=== PATIENT | female | born 1980 | race Two or more races ===

== ENCOUNTER 2017-02-15 21:20 | Emergency (ER) | payer SELFPAY ==
[~2017-02-15] VITALS: Ht 152.4 cm; Wt 59.0 kg
[2017-02-15] MEDS ORDERED: SUMA50TA3 PO (22:01)
--- NOTE | 2017-02-15 22:01 | PHYS DOC ---
Past Medical History Past Medical History: No Pertinent History Past Surgical History: No Surgical History Alcohol Use: Rarely Drug Use: None Adult General Chief Complaint Chief Complaint: FLU SYMPTOM HPI HPI Patient is a 36 year old female with no significant medical history who presents complaining of a left-sided headache especially behind the left eye that began 4 days ago. Patient states the headache comes and goes. Patient states she's had similar headaches before. Patient denies any photophobia nausea vomiting with the headache. She states she feels her face is warm. She states she has an appointment with her doctor tomorrow. Review of Systems Review of Systems Constitutional: Denies fever or chills [] Eyes: Denies change in visual acuity, redness, or eye pain [] HENT: Denies nasal congestion or sore throat [] Respiratory: Denies cough or shortness of breath [] Cardiovascular: No additional information not addressed in HPI [] GI: Denies abdominal pain, nausea, vomiting, bloody stools or diarrhea [] : Denies dysuria or hematuria [] Musculoskeletal: Denies back pain or joint pain [] Integument: Denies rash or skin lesions [] Neurologic: headache, Endocrine: Denies polyuria or polydipsia [] Current Medications Current Medications Current Medications Medications (Trade) Dose Ordered Sig/Marcelo Start Time Stop Time Status Last Admin Dose Admin Diphenhydramine HCl (Benadryl) 25 mg 1X ONCE 02/15/17 22:00 02/15/17 22:01 UNV Ketorolac Tromethamine (Toradol Im) 60 mg 1X ONCE 02/15/17 22:00 02/15/17 22:01 UNV Prochlorperazine Edisylate (Compazine) 10 mg 1X ONCE 02/15/17 22:00 02/15/17 22:01 UNV Allergies Allergies Allergies Coded Allergies Type Severity Reaction Last Updated Verified No Known Drug Allergies 02/15/17 No Physical Exam Physical Exam Constitutional: Well developed, well nourished, no acute distress, non-toxic appearance. [] HENT: Normocephalic, atraumatic, bilateral external ears normal, oropharynx moist, no oral exudates, nose normal. [] Eyes: PERRLA, EOMI, conjunctiva normal, no discharge. [] Neck: Normal range of motion, no tenderness, supple, no stridor. [] Cardiovascular:Heart rate regular rhythm, no murmur [] Lungs & Thorax: Bilateral breath sounds clear to auscultation [] Abdomen: Bowel sounds normal, soft, no tenderness, no masses, no pulsatile masses. [] Skin: Warm, dry, no erythema, no rash. [] Back: No tenderness, no CVA tenderness. [] Extremities: No tenderness, no cyanosis, no clubbing, ROM intact, no edema. [] Neurologic: Alert and oriented X 3, normal motor function, normal sensory function, no focal deficits noted. Cranial nose II through XII intact Psychologic: Affect normal, judgement normal, mood normal. [] Current Patient Data Vital Signs Vital Signs Date Time Temp Pulse Resp B/P Pulse Ox O2 Delivery O2 Flow Rate FiO2 02/15/17 21:41 98.4 104 18 119/77 98 Room Air 98.4 EKG EKG [] Radiology/Procedures Radiology/Procedures [] Course & Med Decision Making Course & Med Decision Making Pertinent Labs and Imaging studies reviewed. (See chart for details) Patient is in the ED complaining of a headache that is suspicious of a migraine. She was given Toradol Benadryl and Compazine. She was discharged with Imitrex. She has an appointment with her doctor tomorrow. Provided return precautions and discharged in stable condition. Dragon Disclaimer Dragon Disclaimer This electronic medical record was generated, in whole or in part, using a voice recognition dictation system. Departure Departure Impression: Primary Impression: Headache Disposition: HOME, SELF-CARE Condition: STABLE Referrals: NON,STAFF (PCP) Follow-up with your doctor tomorrow Patient Instructions: General Headache Without Cause, [id number] Additional Instructions: You were seen for a headache. Please follow-up with your doctor tomorrow as scheduled. Scripts Sumatriptan Succinate (Imitrex)50 Mg Tablet1 Tab PO UD #9 TAB Ref 1 Prov:LENNY SANCHEZ ERNESTO 02/15/17 Problem Qualifiers Primary Impression: Headache Headache type: unspecified Headache chronicity pattern: unspecified pattern Intractability: not intractable Qualified Code: R51 - Headache LENNY SANCHEZ ERNESTO February 15, 2017 22:01
[2017-02-15] MEDS ORDERED: PROCHLORPERAZINE 10 MG/2 ML VIAL. IM ONE (22:15)
[2017-02-15] MEDS ORDERED: diphenhydrAMINE 50 MG/ML VIAL IM ONE (22:15)
[2017-02-15] MEDS ORDERED: KETOROLAC TROMETHAMINE 60 MG/2 ML INJ. IM ONE (22:15)
[2017-02-15 22:34] VITALS: BP 98/65
== END 2017-02-15 22:35 | disposition home or self-care (01) ==
LOC: ER 21:20
DX: R51 Headache (principal)
CPT/HCPCS: 96372; 99284; J0780; J1200; J1885

== ENCOUNTER 2021-06-18 20:09 | Inpatient (IN) | payer MEDICAID ==
[~2021-06-18] VITALS: Ht 152.4 cm; Wt 62.6 kg
[~2021-06-18 20:09] MED LIST: DOCU-109 PO; FERR325T14 PO; IBUP-1060 PO; SUMA50TA3 PO
--- NOTE | 2021-06-18 20:41 | PHYS DOC ---
Past Medical History Past Medical History: No Pertinent History Past Surgical History: No Surgical History Smoking Status: Never Smoker Alcohol Use: Rarely Drug Use: None General Adult EDM: Chief Complaint: ABDOMINAL PAIN HPI: HPI: Patient is a 40 year old female who present to ER for evaluation of right upper quadrant abdominal pain epigastric pain since 3 PM today while she was at work. Patient had this problem off and on for about 4 months. Patient says she was seen at [facility] last month for the same problem, diagnosed with gallbladder problem. Patient has not seen a general surgeon yet. Patient denies any cough or fever. Patient denies any chest pain or any trouble breathing, she says she is not . Review of Systems: Review of Systems: Constitutional: Denies fever or chills. [] Eyes: Denies change in visual acuity. [] HENT: Denies nasal congestion or sore throat. [] Respiratory: Denies cough or shortness of breath. [] Cardiovascular: Denies chest pain or edema. [] GI: Positive for abdominal pain with nausea, no vomiting, no diarrhea. : Denies dysuria. [] Musculoskeletal: Denies back pain or joint pain. [] Integument: Denies rash. [] Neurologic: Denies headache, focal weakness or sensory changes. [] Endocrine: Denies polyuria or polydipsia. [] Lymphatic: Denies swollen glands. [] Psychiatric: Denies depression or anxiety. [] Heart Score: C/O Chest Pain: N/A Risk Factors: Risk Factors: DM, Current or recent (<one month) smoker, HTN, HLP, family history of CAD, obesity. Risk Scores: Score 0 - 3: 2.5% MACE over next 6 weeks - Discharge Home Score 4 - 6: 20.3% MACE over next 6 weeks - Admit for Clinical Observation Score 7 - 10: 72.7% MACE over next 6 weeks - Early Invasive Strategies Allergies: Allergies: Allergies Coded Allergies Type Severity Reaction Last Updated Verified progesterone Adverse Reaction Intermediate Itching 10/01/20 Yes Physical Exam: PE: Constitutional: Well developed, well nourished, no acute distress, non-toxic appearance. [] HENT: Normocephalic, atraumatic, bilateral external ears normal, oropharynx moist, no oral exudates, nose normal. [] Eyes: PERRLA, EOMI, conjunctiva normal, no discharge. [] Neck: Normal range of motion, no tenderness, supple, no stridor. [] Cardiovascular:Heart rate regular rhythm, no murmur [] Lungs & Thorax: Bilateral breath sounds clear to auscultation [] Abdomen: Bowel sounds normal, soft, there is tenderness to palpation in the epigastric and right upper quadrant. No masses, no pulsatile masses. [] Skin: Warm, dry, no erythema, no rash. [] Back: No tenderness, no CVA tenderness. [] Extremities: No tenderness, no cyanosis, no clubbing, ROM intact, no edema. [] Neurologic: Alert and oriented X 3, normal motor function, normal sensory function, no focal deficits noted. [] Psychologic: Affect normal, judgement normal, mood normal. [] Current Patient Data: Labs: Laboratory Tests Test 06/18/21 20:20 06/18/21 20:22 06/18/21 20:55 Urine Collection Type Void Urine Color Yellow Urine Clarity Clear Urine pH 6.0 Urine Specific [place] 1.020 Urine Protein Negative mg/dL Urine Glucose (UA) Negative mg/dL Urine Ketones (Stick) Negative mg/dL Urine Blood Trace Urine Nitrite Negative Urine Bilirubin Negative Urine Urobilinogen Dipstick 1.0 mg/dL Urine Leukocyte Esterase Moderate Urine RBC 0 /HPF Urine WBC >40 /HPF Urine Squamous Epithelial Cells Mod /LPF Urine Bacteria Moderate /HPF Urine Mucus Marked /LPF Bedside Urine HCG, Qualitative Hcg negative White Blood Count 10.1 x10^3/uL Red Blood Count 4.64 x10^6/uL Hemoglobin 13.8 g/dL Hematocrit 39.1 % Mean Corpuscular Volume 84 fL Mean Corpuscular Hemoglobin 30 pg Mean Corpuscular Hemoglobin Concent 35 g/dL Red Cell Distribution Width 13.4 % Platelet Count 388 x10^3/uL Neutrophils (%) (Auto) 71 % Lymphocytes (%) (Auto) 23 % Monocytes (%) (Auto) 4 % Eosinophils (%) (Auto) 1 % Basophils (%) (Auto) 0 % Neutrophils # (Auto) 7.2 x10^3/uL Lymphocytes # (Auto) 2.4 x10^3/uL Monocytes # (Auto) 0.4 x10^3/uL Eosinophils # (Auto) 0.1 x10^3/uL Basophils # (Auto) 0.0 x10^3/uL Sodium Level 138 mmol/L Potassium Level 3.3 mmol/L Chloride Level 101 mmol/L Carbon Dioxide Level 28 mmol/L Anion Gap 9 Blood Urea Nitrogen 9 mg/dL Creatinine 0.8 mg/dL Estimated GFR (Cockcroft-Gault) 80.3 BUN/Creatinine Ratio 11 Glucose Level 124 mg/dL Calcium Level 9.2 mg/dL Magnesium Level 1.9 mg/dL Total Bilirubin 1.0 mg/dL Aspartate Amino Transf (AST/SGOT) 158 U/L Alanine Aminotransferase (ALT/SGPT) 100 U/L Alkaline Phosphatase 165 U/L Total Protein 7.9 g/dL Albumin 3.9 g/dL Albumin/Globulin Ratio 1.0 Lipase 141 U/L Current Medications Medications (Trade) Dose Ordered Sig/Marcelo Route PRN Reason Start Time Stop Time Status Last Admin Dose Admin Sodium Chloride 1,000 ml @ 1,000 mls/hr 1X ONCE IV 06/18/21 20:45 06/18/21 21:44 DC 06/18/21 20:56 Ceftriaxone Sodium (Rocephin) 1 gm 1X ONCE IVP 06/18/21 21:30 06/18/21 21:31 DC 06/18/21 22:00 Morphine Sulfate (Morphine Sulfate) 4 mg 1X ONCE IVP 06/18/21 21:45 06/18/21 21:47 DC 06/18/21 21:58 Ondansetron HCl (Zofran) 4 mg PRN Q8HRS PRN IVP NAUSEA/VOMITING 06/18/21 23:45 06/19/21 23:44 Morphine Sulfate (Morphine Sulfate) 4 mg PRN Q2HR PRN IVP PAIN 06/18/21 23:45 06/19/21 23:44 Sodium Chloride 1,000 ml @ 75 mls/hr [id number] IV 06/18/21 23:45 06/19/21 23:44 Laboratory Tests Test 06/18/21 20:22 POC Urine HCG, Qualitative Hcg negative (Negative) EKG: EKG: [] Radiology/Procedures: Radiology/Procedures: [][facility] [id number] [place], [place] [id number] IMAGING REPORT Signed PATIENT: FLAVIA PAT ACCOUNT: [id number] : 1980 LOCATION: ER AGE: 40 SEX: F EXAM STATUS: REG ER ORD. PHYSICIAN: NELDA PULIDO DO REASON: RUQ abdominal pain/ attempted patient said she felt dizzy and couldn't miladys PROCEDURE: ABDOMEN LTD EXAMINATION: US ABDOMEN LIMITED INDICATION: 40 years, Female, right upper quadrant abdominal pain. COMPARISON: None TECHNIQUE: Grayscale, color Doppler and limited spectral Doppler images of the right upper quadrant were obtained. FINDINGS: LIVER: SIZE (LENGTH): 14.6 cm. ECHOGENICITY: Increased PARENCHYMA: Mild heterogeneous echotexture. No discrete focal lesion. INTRAHEPATIC BILE DUCTS: Nondilated. PORTAL VEIN: Patent with normal hepatopedal flow. GALLBLADDER: GALLBLADDER WALL THICKNESS: 2 mm MORPHOLOGY: Normal morphology. No wall hyperemia or pericholecystic free fluid. LUMEN: Multiple cholelithiasis.. COMMON BILE DUCT DIAMETER: 3 mm RIGHT KIDNEY: MEASURES: 10.2 cm in length. MORPHOLOGY/PARENCHYMA: Normal corticomedullary differentiation with no shadowing calculus or discrete masses. COLLECTING SYSTEM: No hydronephrosis. PANCREAS: VISUALIZED PORTIONS: Head and proximal body APPEARANCE: Within normal limits. OTHER: RETROPERITONEUM, INFERIOR VENA CAVA: Normal caliber. AORTA: Not well visualized. FLUID:No free fluid. IMPRESSION: 1. Multiple cholelithiasis without sonographic evidence of acute cholecystitis. 2. Mild to moderate diffuse hepatic steatosis. Electronically signed by: Steve Steven MD (06/18/2021 10:53 PM) [facility] DICTATED and SIGNED BY: STEVE STEVEN MD DATE: 06/18/21 [id number] 0 Course & Med Decision Making: Course & Med Decision Making Pertinent Labs and Imaging studies reviewed. (See chart for details) Patient is a 32-year-old female who present to ER due to right upper quadrant abdominal pain. Ultrasound showed multiple gallstones with fatty infiltration of the liver. Her liver function tests are elevated. Patient will need to be admitted for further evaluation and treatment. Dragon Disclaimer: Dragon Disclaimer: This electronic medical record was generated, in whole or in part, using a voice recognition dictation system. Departure Departure Impression: Primary Impression: Biliary colic symptom Additional Impressions: UTI (urinary tract infection) Elevated LFTs Disposition: ADMITTED INPATIENT Admitting Physician: MARILIN (DR. ZELAYA) Condition: STABLE Referrals: NO PCP (PCP) NELDA PULIDO DO Jun 18, 2021 20:41
[2021-06-18] MEDS ORDERED: IV NORMAL SALINE 1000ML BAG 1,000 ML IV ONE (20:45)
[2021-06-18 20:48] LABS: BILIRUBIN,URINE NEGATIVE (NEG); CLARITY,URINE CLEAR; COLOR,URINE YELLOW; NITRITE,URINE NEGATIVE (NEG); PROTEIN,URINE NEGATIVE (NEG-TRACE)
[2021-06-18 20:59] LABS: BACTERIA,URINE MODERATE /HPF (0-FEW)
[2021-06-18 21:00] LABS: RBC,URINE 0 /HPF (0-2); WBC,URINE >40 /HPF (0-4)
[2021-06-18 21:04] LABS: BASO % 0 % (0-3); EOS # 0.1 x10^3/uL (0.0-0.7); EOS % 1 % (0-3); HEMATOCRIT 39.1 % (36.0-47.0); HEMOGLOBIN 13.8 g/dL (12.0-15.5); LYMPH # 2.4 x10^3/uL (1.0-4.8); LYMPH % 23 % (24-48); MEAN CORPUSCULAR HEMOGLOBIN 30 pg (25-35); MEAN CORPUSCULAR HGB CONC 35 g/dL (31-37); MEAN CORPUSCULAR VOLUME 84 fL (79-100); MONO # 0.4 x10^3/uL (0.0-1.1); MONO % 4 % (0-9); NEUT # 7.2 x10^3/uL (1.8-7.7); NEUT % 71 % (31-73); PLATELET COUNT 388 x10^3/uL (140-400); RED BLOOD COUNT 4.64 x10^6/uL (3.50-5.40); RED CELL DISTRIBUTION WIDTH 13.4 % (11.5-14.5); WHITE BLOOD COUNT 10.1 x10^3/uL (4.0-11.0)
[2021-06-18 21:14] LABS: CALCIUM 9.2 mg/dL (8.5-10.1); CREATININE 0.8 mg/dL (0.6-1.0); GFR 80.3; POTASSIUM 3.3 mmol/L (3.5-5.1)
[2021-06-18 21:19] LABS: ALBUMIN 3.9 g/dL (3.4-5.0); MAGNESIUM 1.9 mg/dL (1.8-2.4); TOTAL PROTEIN 7.9 g/dL (6.4-8.2)
[2021-06-18] MEDS ORDERED: cefTRIAXone IV Push 1 GM VIAL. IVP ONE (21:30)
[2021-06-18] MEDS ORDERED: MORPHINE SULFATE 4 MG/ML INJ. IVP ONE (21:45)
--- NOTE | 2021-06-18 22:55 | RAD ---
EXAMINATION: US ABDOMEN LIMITED INDICATION: 40 years, Female, right upper quadrant abdominal pain. COMPARISON: None TECHNIQUE: Grayscale, color Doppler and limited spectral Doppler images of the right upper quadrant w ere obtained. FINDINGS: LIVER: SIZE (LENGTH): 14.6 cm. ECHOGENICITY: Increased PARENCHYMA: Mild heterogeneous echotexture. No discrete focal lesion. INTRAHEPATIC BILE DUCTS: Nondilated. PORTAL VEIN: Patent with normal hepatopedal flow. GALLBLADDER: GALLBLADDER WALL THICKNESS: 2 mm MORPHOLOGY: Normal morphology. No wall hyperemia or pericholecystic free fluid. LUMEN: Multiple cholelithiasis.. COMMON BILE DUCT DIAMETER: 3 mm RIGHT KIDNEY: MEASURES: 10.2 cm in length. MORPHOLOGY/PARENCHYMA: Normal corticomedullary differentiation with no shadowing calculus or discrete masses. COLLECTING SYSTEM: No hydronephrosis. PANCREAS: VISUALIZED PORTIONS: Head and proximal body APPEARANCE: Within normal limits. OTHER: RETROPERITONEUM, INFERIOR VENA CAVA: Normal caliber. AORTA: Not well visualized. FLUID:No free fluid. IMPRESSION: 1. Multiple cholelithiasis without sonographic evidence of acute cholecystitis. 2. Mild to moderate diffuse hepatic steatosis. Electronically signed by: Florentino Steven MD (06/18/2021 10:53 PM) [facility]
[2021-06-18] MEDS ORDERED: ONDANSETRON PF 4 MG/2 ML VIAL. IVP PRN (23:45)
[2021-06-19] MEDS: IV NORMAL SALINE 1000ML BAG 1,000 ML IV SCH ×2 (01:20→12:34)
[2021-06-19 03:40] VITALS: BP 120/70
--- NOTE | 2021-06-19 03:40 | NUR ---
Patient admitted from ER to room 422 per cart. Admitting diagnosis: biliary colic and UTI. Patient was seen at [facility] 06/01/21. Patient was told she had gall stones and an UTI. Patient was sent home on an oral antibiotic. Patient stated she finished the antibiotics but she was still having pain so she came to [facility]. Patient is alert and oriented X4. Patient speaks Faroese and Persian. Patient c/o pain that is at times aching, sore, stabbing and throbbing with tenderness to palpitation of RUQ abdomen and epigastric region. Pain does radiate to back and right flank. Consult for surgeon to see patient ordered. Patient in no acute distress. Will continue to monitor.
[2021-06-19 07:10] VITALS: BP 114/72
[2021-06-19] MEDS: MORPHINE SULFATE 4 MG/ML INJ. IVP PRN ×2 (07:33→17:38)
--- NOTE | 2021-06-19 07:46 | PDOC1 ---
History and Physical Date of Admission Date of Admission DATE: 06/19/21 TIME: 07:34 Identification/Chief Complaint Chief Complaint Abdominal pain History of Present Illness History of Present Illness Ms Chavez is a 40 year old female who presented to the ED for evaluation of sudden onset right upper quadrant abdominal pain and epigastric pain since 3 PM 06/18/2021 while she was at work. Patient had this problem off and on for about 4 months. Patient says she was seen at [facility] last month 06/01/2021 for the same problem, diagnosed with gallstones and UTI. Patient has not seen a general surgeon yet. Patient denies any cough or fever. Patient denies any chest pain or any trouble breathing, she says she is not . Nose pain is tenderness to the right upper quadrant and radiates to her right flank and back as well as her epigastrium. Labs WBC 10.1, Hb 13.8, platelets 388, NA 138, K3.3, BUN 9, CR 0.8, glucose 124, calcium 9.2, mag 1.9, bilirubin 1, AST 158, ALT 100, alkaline phosphatase 165, albumin 3.9, urinalysis hCG negative with moderate leuk esterase trace blood. Rapid COVID-19 negative. Abdominal ultrasound with multiple gallstones no sonographic evidence of acute cholecystitis, hepatic steatosis. Admitted for further care and pain control. Past Medical History Cardiovascular: No pertinent hx Past Surgical History Past Surgical History: No pertinent history Family History Family History: Diabetes Family History: Parent (Gallbladder disease) Social History Smoke: No ALCOHOL: none Drugs: None Current Problem List Problem List Problems Medical Problems: (1) Biliary colic symptom Status: Acute (2) Elevated LFTs Status: Acute (3) UTI (urinary tract infection) Status: Acute Current Medications Current Medications Current Medications Sodium Chloride 1,000 ml @ 1,000 mls/hr 1X ONCE IV Last administered on 06/18/21at 20:56; Start 06/18/21 at 20:45; Stop 06/18/21 at 21:44; Status DC Ceftriaxone Sodium (Rocephin) 1 gm 1X ONCE IVP Last administered on 06/18/21at 22:00; Start 06/18/21 at 21:30; Stop 06/18/21 at 21:31; Status DC Morphine Sulfate (Morphine Sulfate) 4 mg 1X ONCE IVP Last administered on 06/18/21at 21:58; Start 06/18/21 at 21:45; Stop 06/18/21 at 21:47; Status DC Ondansetron HCl (Zofran) 4 mg PRN Q8HRS PRN IVP NAUSEA/VOMITING; Start 06/18/21 at 23:45; Stop 06/19/21 at 23:44 Morphine Sulfate (Morphine Sulfate) 4 mg PRN Q2HR PRN IVP PAIN; Start 06/18/21 at 23:45; Stop 06/19/21 at 23:44 Sodium Chloride 1,000 ml @ 75 mls/hr [id number] IV Last administered on 06/19/21at 01:20; Start 06/18/21 at 23:45; Stop 06/19/21 at 23:44 Active Scripts Active Ferrous Sulfate 325 Mg Tablet 1 Tab PO BID Ibuprofen 800 Mg Tablet 800 Mg PO PRN Q8HRS PRN Colace (Docusate Sodium) 100 Mg Capsule 100 Mg PO PRN BID PRN Imitrex (Sumatriptan Succinate) 50 Mg Tablet 1 Tab PO UD Allergies Allergies: Coded Allergies: progesterone (Verified Adverse Reaction, Intermediate, Itching, 10/01/20) itchy eyes ROS General: YES: Fatigue, Malaise, Appetite; No: Chills, Night Sweats, Other PSYCHOLOGICAL ROS: No: Anxiety, Behavioral Disorder, Concentration difficultie, Decreased libido, Depression, Disorientation, Hallucinations, Hostility, Irritablity, Memory difficulties, Mood Swings, Obsessive thoughts, Physical abuse, Sexual abuse, Sleep disturbances, Suicidal ideation, Other Eyes: No Blurry vision, No Decreased vision, No Double vision, No Dry eyes, No Excessive tearing, No Eye Pain, No Itchy Eyes, No Loss of vision, No Photophobia, No Scotomata, No Uses contacts, No Uses glasses, No Other HEENT: No: Heacaches, Visual Changes, Hearing change, Nasal congestion, Nasal discharge, Oral lesions, Sinus pain, Sore Throat, Epistaxis, Sneezing, Snoring, Tinnitus, Vertigo, Vocal changes, Other ALLERGY AND IMMUNOLOGY: No: Hives, Insect Bite Sensitivity, Itchy/Watery Eyes, Nasal Congestion, Post Nasal Drip, Seasonal Allergies, Other Hematological and Lymphatic: No: Bleeding Problems, Blood Clots, Blood Transfusions, Brusing, Night Sweats, Pallor, Swollen Lymph Nodes, Other ENDOCRINE: No: Breast Changes, Galactorrhea, Hair Pattern Changes, Hot Flashes, Malaise/lethargy, Mood Swings, Palpitations, Polydipsia/polyuria, Skin Changes, Temperature Intolerance, Unexpected Weight Changes, Other Breast: No New/Changing Breast Lumps, No Nipple changes, No Nipple discharge, No Other Respiratory: No: Cough, Hemoptysis, Orthopnea, Pleuritic Pain, Shortness of breath, SOB with excertion, Sputum Changes, Stridor, Tachypnea, Wheezing, Other Cardiovascular: No Chest Pain, No Palpitations, No Orthopnea, No Paroxysmal Noc. Dyspnea, No Edema, No Lt Headedness, No Other Gastrointestinal: Yes Nausea, Yes Abdominal Pain; No Vomiting, No Diarrhea, No Constipation, No Melena, No Hematochezia, No Other Genitourinary: No Dysuria, No Frequency, No Incontinence, No Hematuria, No Retention, No Discharge, No Urgency, No Pain, No Flank Pain, No Other, No , No , No , No , No , No , No Musculoskeletal: No Gait Disturbance, No Joint Pain, No Joint Stiffness, No Joint Swelling, No Muscle Pain, No Muscular Weakness, No Pain In:, No Swelling In:, No Other Neurological: No Behavorial Changes, No Bowel/Bladder ControlChng, No Confusion, No Dizziness, No Gait Disturbance, No Headaches, No Impaired Coord/balance, No Memory Loss, No Numbness/Tingling, No Seizures, No Speech Problems, No Tremors, No Visual Changes, No Weakness, No Other Skin: No Dry Skin, No Eczema, No Hair Changes, No Lumps, No Mole Changes, No Mottling, No Nail Changes, No Pruritus, No Rash, No Skin Lesion Changes, No Other, No Acne Vitals Vitals Vital Signs Date Time Temp Pulse Resp B/P (MAP) Pulse Ox O2 Delivery O2 Flow Rate FiO2 06/19/21 04:00 Room Air 06/19/21 03:40 97.8 100 20 120/70 (87) 97 97.8 06/18/21 22:25 1.0 Labs Labs Laboratory Tests Test 06/18/21 20:20 06/18/21 20:22 06/18/21 20:55 06/19/21 02:40 Urine Collection Type Void Urine Color Yellow Urine Clarity Clear Urine pH 6.0 (<5.0-8.0) Urine Specific [place] 1.020 (1.000-1.030) Urine Protein Negative mg/dL (NEG-TRACE) Urine Glucose (UA) Negative mg/dL (NEG) Urine Ketones (Stick) Negative mg/dL (NEG) Urine Blood Trace (NEG) Urine Nitrite Negative (NEG) Urine Bilirubin Negative (NEG) Urine Urobilinogen Dipstick 1.0 mg/dL (0.2 mg/dL) Urine Leukocyte Esterase Moderate (NEG) Urine RBC 0 /HPF (0-2) Urine WBC >40 /HPF (0-4) Urine Squamous Epithelial Cells Mod /LPF Urine Bacteria Moderate /HPF (0-FEW) Urine Mucus Marked /LPF Bedside Urine HCG, Qualitative Hcg negative (Negative) White Blood Count 10.1 x10^3/uL (4.0-11.0) Red Blood Count 4.64 x10^6/uL (3.50-5.40) Hemoglobin 13.8 g/dL (12.0-15.5) Hematocrit 39.1 % (36.0-47.0) Mean Corpuscular Volume 84 fL (79-100) Mean Corpuscular Hemoglobin 30 pg (25-35) Mean Corpuscular Hemoglobin Concent 35 g/dL (31-37) Red Cell Distribution Width 13.4 % (11.5-14.5) Platelet Count 388 x10^3/uL (140-400) Neutrophils (%) (Auto) 71 % (31-73) Lymphocytes (%) (Auto) 23 % (24-48) Monocytes (%) (Auto) 4 % (0-9) Eosinophils (%) (Auto) 1 % (0-3) Basophils (%) (Auto) 0 % (0-3) Neutrophils # (Auto) 7.2 x10^3/uL (1.8-7.7) Lymphocytes # (Auto) 2.4 x10^3/uL (1.0-4.8) Monocytes # (Auto) 0.4 x10^3/uL (0.0-1.1) Eosinophils # (Auto) 0.1 x10^3/uL (0.0-0.7) Basophils # (Auto) 0.0 x10^3/uL (0.0-0.2) Sodium Level 138 mmol/L (136-145) Potassium Level 3.3 mmol/L (3.5-5.1) Chloride Level 101 mmol/L (98-107) Carbon Dioxide Level 28 mmol/L (21-32) Anion Gap 9 (6-14) Blood Urea Nitrogen 9 mg/dL (7-20) Creatinine 0.8 mg/dL (0.6-1.0) Estimated GFR (Cockcroft-Gault) 80.3 BUN/Creatinine Ratio 11 (6-20) Glucose Level 124 mg/dL (70-99) Calcium Level 9.2 mg/dL (8.5-10.1) Magnesium Level 1.9 mg/dL (1.8-2.4) Total Bilirubin 1.0 mg/dL (0.2-1.0) Aspartate Amino Transf (AST/SGOT) 158 U/L (15-37) Alanine Aminotransferase (ALT/SGPT) 100 U/L (14-59) Alkaline Phosphatase 165 U/L (46-116) Total Protein 7.9 g/dL (6.4-8.2) Albumin 3.9 g/dL (3.4-5.0) Albumin/Globulin Ratio 1.0 (1.0-1.7) Lipase 141 U/L (73-393) SARS-CoV-2 Antigen (Rapid) Negative (NEGATIVE) Laboratory Tests Test 06/18/21 20:20 06/18/21 20:22 06/18/21 20:55 06/19/21 02:40 Urine Collection Type Void Urine Color Yellow Urine Clarity Clear Urine pH 6.0 (<5.0-8.0) Urine Specific [place] 1.020 (1.000-1.030) Urine Protein Negative mg/dL (NEG-TRACE) Urine Glucose (UA) Negative mg/dL (NEG) Urine Ketones (Stick) Negative mg/dL (NEG) Urine Blood Trace (NEG) Urine Nitrite Negative (NEG) Urine Bilirubin Negative (NEG) Urine Urobilinogen Dipstick 1.0 mg/dL (0.2 mg/dL) Urine Leukocyte Esterase Moderate (NEG) Urine RBC 0 /HPF (0-2) Urine WBC >40 /HPF (0-4) Urine Squamous Epithelial Cells Mod /LPF Urine Bacteria Moderate /HPF (0-FEW) Urine Mucus Marked /LPF Bedside Urine HCG, Qualitative Hcg negative (Negative) White Blood Count 10.1 x10^3/uL (4.0-11.0) Red Blood Count 4.64 x10^6/uL (3.50-5.40) Hemoglobin 13.8 g/dL (12.0-15.5) Hematocrit 39.1 % (36.0-47.0) Mean Corpuscular Volume 84 fL (79-100) Mean Corpuscular Hemoglobin 30 pg (25-35) Mean Corpuscular Hemoglobin Concent 35 g/dL (31-37) Red Cell Distribution Width 13.4 % (11.5-14.5) Platelet Count 388 x10^3/uL (140-400) Neutrophils (%) (Auto) 71 % (31-73) Lymphocytes (%) (Auto) 23 % (24-48) Monocytes (%) (Auto) 4 % (0-9) Eosinophils (%) (Auto) 1 % (0-3) Basophils (%) (Auto) 0 % (0-3) Neutrophils # (Auto) 7.2 x10^3/uL (1.8-7.7) Lymphocytes # (Auto) 2.4 x10^3/uL (1.0-4.8) Monocytes # (Auto) 0.4 x10^3/uL (0.0-1.1) Eosinophils # (Auto) 0.1 x10^3/uL (0.0-0.7) Basophils # (Auto) 0.0 x10^3/uL (0.0-0.2) Sodium Level 138 mmol/L (136-145) Potassium Level 3.3 mmol/L (3.5-5.1) Chloride Level 101 mmol/L (98-107) Carbon Dioxide Level 28 mmol/L (21-32) Anion Gap 9 (6-14) Blood Urea Nitrogen 9 mg/dL (7-20) Creatinine 0.8 mg/dL (0.6-1.0) Estimated GFR (Cockcroft-Gault) 80.3 BUN/Creatinine Ratio 11 (6-20) Glucose Level 124 mg/dL (70-99) Calcium Level 9.2 mg/dL (8.5-10.1) Magnesium Level 1.9 mg/dL (1.8-2.4) Total Bilirubin 1.0 mg/dL (0.2-1.0) Aspartate Amino Transf (AST/SGOT) 158 U/L (15-37) Alanine Aminotransferase (ALT/SGPT) 100 U/L (14-59) Alkaline Phosphatase 165 U/L (46-116) Total Protein 7.9 g/dL (6.4-8.2) Albumin 3.9 g/dL (3.4-5.0) Albumin/Globulin Ratio 1.0 (1.0-1.7) Lipase 141 U/L (73-393) SARS-CoV-2 Antigen (Rapid) Negative (NEGATIVE) Images Images Abdominal US: LIVER: SIZE (LENGTH): 14.6 cm. ECHOGENICITY: Increased PARENCHYMA: Mild heterogeneous echotexture. No discrete focal lesion. INTRAHEPATIC BILE DUCTS: Nondilated. PORTAL VEIN: Patent with normal hepatopedal flow. GALLBLADDER: GALLBLADDER WALL THICKNESS: 2 mm MORPHOLOGY: Normal morphology. No wall hyperemia or pericholecystic free fluid. LUMEN: Multiple cholelithiasis.. COMMON BILE DUCT DIAMETER: 3 mm RIGHT KIDNEY: MEASURES: 10.2 cm in length. MORPHOLOGY/PARENCHYMA: Normal corticomedullary differentiation with no shadowing calculus or discrete masses. COLLECTING SYSTEM: No hydronephrosis. PANCREAS: VISUALIZED PORTIONS: Head and proximal body APPEARANCE: Within normal limits. OTHER: RETROPERITONEUM, INFERIOR VENA CAVA: Normal caliber. AORTA: Not well visualized. FLUID:No free fluid. IMPRESSION: 1. Multiple cholelithiasis without sonographic evidence of acute cholecystitis. 2. Mild to moderate diffuse hepatic steatosis. VTE Prophylaxis Ordered VTE Prophylaxis Devices: No VTE Pharmacological Prophylaxi: No Assessment/Plan Assessment/Plan A/P: Intractable abdominal pain - likely related to biliary colic with chronic recurrent cholecystitis. Given her symptoms recurring over the past 4 months and 2 hospitalizations recommend eval for laparoscopic cholecystectomy while inpatient. No further testing prior to planned surgery Cholelithiasis - symptomatic. recommend lap joann consideration Overweight - counseled on lifestyle modification Transaminitis - likely due to symptomatic cholelithiasis. COVID 19 negative. Will monitor trend, if still elevated will check hepatitis panel Hypokalemia - due to NPO, will replace when taking PO. LR will have replacement of K in fluids FEN - NPO PPX - Ambulatory low risk FULL CODE Dispo - inpatient Justifications for Admission Other Justification SABRINA HAGAN MD Jun 19, 2021 07:46
[2021-06-19] MEDS ORDERED: ROCURONIUM 50 MG/5 ML VIAL. ONE (09:00)
[2021-06-19] MEDS ORDERED: LIDOCAINE 2% PF 5 ML VIAL. ONE (09:00)
[2021-06-19] MEDS ORDERED: PROPOFOL 10 MG/ML (20ML) VIAL. IV ONE (09:00)
[2021-06-19] MEDS ORDERED: MIDAZOLAM HCL/PF 2 MG/2 ML VIAL. ONE (09:00)
[2021-06-19] MEDS ORDERED: fentaNYL PF VIAL 250 MCG/5 ML VIAL ONE (09:00)
[2021-06-19] MEDS ORDERED: fentaNYL PF VIAL 100 MCG/2 ML VIAL IVP PRN ×2 (09:15)
[2021-06-19] MEDS ORDERED: HYDROmorphone 2 MG/ML VIAL IVP PRN (09:15)
[2021-06-19] MEDS ORDERED: IV RINGERS,LACTATED 1000ML 1,000 ML IV SCH (09:15)
[2021-06-19] MEDS ORDERED: MORPHINE SULFATE 2 MG/ML INJ. IVP PRN (09:15)
[2021-06-19] MEDS ORDERED: PROCHLORPERAZINE 10 MG/2 ML VIAL. IVP PRN (09:15)
[2021-06-19] MEDS ORDERED: SURGICEL HEMOSTAT 2X14 EACH. ONE (09:58)
[2021-06-19] MEDS ORDERED: BUPIVACAINE-EPI 0.25%-1:200000 MPF 30 ML VIAL. ONE (09:58)
[2021-06-19] MEDS ORDERED: IOHEXOL 300 MG/ML 50 ML VIAL. ONE (09:58)
[2021-06-19] MEDS ORDERED: ceFAZolin SODIUM IV Push 1 GM VIAL. IVP ONE (10:19)
--- NOTE | 2021-06-19 10:24 | PDOC2 ---
CONSULT Date of Consult Date of Consult DATE: 06/19/21 TIME: 10:22 Reason for Consult Reason for Consult: Abdominal pain Referring Physician Referring Physician: Johan Identification/Chief Complaint Chief Complaint Abdominal pain Source Source: Chart review, Patient History of Present Illness Reason for Visit: 32-year-old female with 4-month history of right upper quadrant abdominal pain worse after eating occasional nausea no vomiting ultrasound showing gallstones Past Medical History Cardiovascular: No pertinent hx Pulmonary: No pertinent hx GI: No pertinent hx Heme/Onc: No pertinent hx Hepatobiliary: No pertinent hx Psych: No pertinent hx Rheumatologic: No pertinent hx Infectious disease: No pertinent hx ENT: No pertinent hx Renal/: No pertinent hx Endocrine: No pertinent hx Dermatology: No pertinent hx Past Surgical History Past Surgical History: No pertinent history Family History Family History: No Significant Social History No ALCOHOL: none Drugs: None Lives: with Family Current Problem List Problem List Problems Medical Problems: (1) Biliary colic symptom Status: Acute (2) Elevated LFTs Status: Acute (3) UTI (urinary tract infection) Status: Acute Current Medications Current Medications Current Medications Sodium Chloride 1,000 ml @ 1,000 mls/hr 1X ONCE IV Last administered on 06/18/21at 20:56; Start 06/18/21 at 20:45; Stop 06/18/21 at 21:44; Status DC Ceftriaxone Sodium (Rocephin) 1 gm 1X ONCE IVP Last administered on 06/18/21at 22:00; Start 06/18/21 at 21:30; Stop 06/18/21 at 21:31; Status DC Morphine Sulfate (Morphine Sulfate) 4 mg 1X ONCE IVP Last administered on 06/18/21at 21:58; Start 06/18/21 at 21:45; Stop 06/18/21 at 21:47; Status DC Ondansetron HCl (Zofran) 4 mg PRN Q8HRS PRN IVP NAUSEA/VOMITING; Start 06/18/21 at 23:45; Stop 06/19/21 at 23:44 Morphine Sulfate (Morphine Sulfate) 4 mg PRN Q2HR PRN IVP PAIN Last administered on 06/19/21at 07:33; Start 06/18/21 at 23:45; Stop 06/19/21 at 23:44 Sodium Chloride 1,000 ml @ 75 mls/hr [id number] IV Last administered on 06/19/21at 01:20; Start 06/18/21 at 23:45; Stop 06/19/21 at 23:44 Propofol (Diprivan) 200 mg STK-MED ONCE IV ; Start 06/19/21 at 09:00; Stop 06/19/21 at 09:00; Status DC Lidocaine HCl (Lidocaine Pf 2% Vial) 5 ml STK-MED ONCE .ROUTE ; Start 06/19/21 at 09:00; Stop 06/19/21 at 09:00; Status DC Rocuronium [place] (Zemuron) 50 mg STK-MED ONCE .ROUTE ; Start 06/19/21 at 09:00; Stop 06/19/21 at 09:00; Status DC Midazolam HCl (Versed) 2 mg STK-MED ONCE .ROUTE ; Start 06/19/21 at 09:00; Stop 06/19/21 at 09:01; Status DC Fentanyl Citrate (Fentanyl 5ml Vial) 250 mcg STK-MED ONCE .ROUTE ; Start 06/19/21 at 09:00; Stop 06/19/21 at 09:01; Status DC Fentanyl Citrate (Fentanyl 2ml Vial) 25 mcg PRN Q5MIN PRN IVP MILD PAIN 1-3; Start 06/19/21 at 09:15; Stop 06/20/21 at 09:14 Fentanyl Citrate (Fentanyl 2ml Vial) 50 mcg PRN Q5MIN PRN IVP MODERATE PAIN 4- 6; Start 06/19/21 at 09:15; Stop 06/20/21 at 09:14 Morphine Sulfate (Morphine Sulfate) 1 mg PRN Q10MIN PRN IVP SEVERE PAIN 7-10; Start 06/19/21 at 09:15; Stop 06/20/21 at 09:14 Ringer's Solution 1,000 ml @ 30 mls/hr Q24H IV ; Start 06/19/21 at 09:15; Stop 06/19/21 at 21:14 Hydromorphone HCl (Dilaudid) 0.5 mg PRN Q10MIN PRN IVP SEVERE PAIN 7-10, 2nd CHOICE; Start 06/19/21 at 09:15; Stop 06/20/21 at 09:14 Prochlorperazine Edisylate (Compazine) 5 mg PACU PRN PRN IVP NAUSEA, MRX1; Start 06/19/21 at 09:15; Stop 06/20/21 at 09:14 Indocyanine Green 2.5 mg/ Miscellaneous 1 ml @ 60 mls/hr 1X ONCE IVP ; Start 06/20/21 at 06:00; Stop 06/20/21 at 06:01; Status UNV Cellulose (Surgicel Hemostat 2x14) 1 each STK-MED ONCE .ROUTE ; Start 06/19/21 at 09:58; Stop 06/19/21 at 09:58; Status DC Iohexol (Omnipaque 300 Mg/ml) 50 ml STK-MED ONCE .ROUTE ; Start 06/19/21 at 09:58; Stop 06/19/21 at 09:58; Status DC Bupivacaine HCl/ Epinephrine Bitart (Sensorcaine-Epi 0.25%-1:110263 Mpf) 30 ml STK-MED ONCE .ROUTE ; Start 06/19/21 at 09:58; Stop 06/19/21 at 09:59; Status DC Cefazolin Sodium (Ancef) 1 gm STK-MED ONCE IVP ; Start 06/19/21 at 10:19; Stop 06/19/21 at 10:19; Status DC Active Scripts Active Ferrous Sulfate 325 Mg Tablet 1 Tab PO BID Ibuprofen 800 Mg Tablet 800 Mg PO PRN Q8HRS PRN Colace (Docusate Sodium) 100 Mg Capsule 100 Mg PO PRN BID PRN Imitrex (Sumatriptan Succinate) 50 Mg Tablet 1 Tab PO UD Allergies Allergies: Coded Allergies: progesterone (Verified Adverse Reaction, Intermediate, Itching, 10/01/20) itchy eyes ROS Gastrointestinal: Yes Nausea, Yes Abdominal Pain Physical Exam General: Alert, Oriented X3, Cooperative, mild distress HEENT: Atraumatic, EOMI Lungs: Clear to auscultation, Normal air movement Heart: Regular rate, No murmurs Abdomen: Normal bowel sounds, Soft, Other (Tender to palpation right upper quadrant) Extremities: No edema Skin: No significant lesion Neuro: Normal speech Psych/Mental Status: Mental status NL Vitals VITALS Vital Signs Date Time Temp Pulse Resp B/P (MAP) Pulse Ox O2 Delivery O2 Flow Rate FiO2 06/19/21 09:21 Room Air 06/19/21 09:12 98.2 62 114/72 97 1.0 98.2 06/19/21 07:10 18 Labs Labs Laboratory Tests Test 06/18/21 20:20 06/18/21 20:22 06/18/21 20:55 06/19/21 02:40 Urine Collection Type Void Urine Color Yellow Urine Clarity Clear Urine pH 6.0 (<5.0-8.0) Urine Specific [place] 1.020 (1.000-1.030) Urine Protein Negative mg/dL (NEG-TRACE) Urine Glucose (UA) Negative mg/dL (NEG) Urine Ketones (Stick) Negative mg/dL (NEG) Urine Blood Trace (NEG) Urine Nitrite Negative (NEG) Urine Bilirubin Negative (NEG) Urine Urobilinogen Dipstick 1.0 mg/dL (0.2 mg/dL) Urine Leukocyte Esterase Moderate (NEG) Urine RBC 0 /HPF (0-2) Urine WBC >40 /HPF (0-4) Urine Squamous Epithelial Cells Mod /LPF Urine Bacteria Moderate /HPF (0-FEW) Urine Mucus Marked /LPF Bedside Urine HCG, Qualitative Hcg negative (Negative) White Blood Count 10.1 x10^3/uL (4.0-11.0) Red Blood Count 4.64 x10^6/uL (3.50-5.40) Hemoglobin 13.8 g/dL (12.0-15.5) Hematocrit 39.1 % (36.0-47.0) Mean Corpuscular Volume 84 fL (79-100) Mean Corpuscular Hemoglobin 30 pg (25-35) Mean Corpuscular Hemoglobin Concent 35 g/dL (31-37) Red Cell Distribution Width 13.4 % (11.5-14.5) Platelet Count 388 x10^3/uL (140-400) Neutrophils (%) (Auto) 71 % (31-73) Lymphocytes (%) (Auto) 23 % (24-48) Monocytes (%) (Auto) 4 % (0-9) Eosinophils (%) (Auto) 1 % (0-3) Basophils (%) (Auto) 0 % (0-3) Neutrophils # (Auto) 7.2 x10^3/uL (1.8-7.7) Lymphocytes # (Auto) 2.4 x10^3/uL (1.0-4.8) Monocytes # (Auto) 0.4 x10^3/uL (0.0-1.1) Eosinophils # (Auto) 0.1 x10^3/uL (0.0-0.7) Basophils # (Auto) 0.0 x10^3/uL (0.0-0.2) Sodium Level 138 mmol/L (136-145) Potassium Level 3.3 mmol/L (3.5-5.1) Chloride Level 101 mmol/L (98-107) Carbon Dioxide Level 28 mmol/L (21-32) Anion Gap 9 (6-14) Blood Urea Nitrogen 9 mg/dL (7-20) Creatinine 0.8 mg/dL (0.6-1.0) Estimated GFR (Cockcroft-Gault) 80.3 BUN/Creatinine Ratio 11 (6-20) Glucose Level 124 mg/dL (70-99) Calcium Level 9.2 mg/dL (8.5-10.1) Magnesium Level 1.9 mg/dL (1.8-2.4) Total Bilirubin 1.0 mg/dL (0.2-1.0) Aspartate Amino Transf (AST/SGOT) 158 U/L (15-37) Alanine Aminotransferase (ALT/SGPT) 100 U/L (14-59) Alkaline Phosphatase 165 U/L (46-116) Total Protein 7.9 g/dL (6.4-8.2) Albumin 3.9 g/dL (3.4-5.0) Albumin/Globulin Ratio 1.0 (1.0-1.7) Lipase 141 U/L (73-393) SARS-CoV-2 Antigen (Rapid) Negative (NEGATIVE) Laboratory Tests Test 06/18/21 20:20 06/18/21 20:22 06/18/21 20:55 06/19/21 02:40 Urine Collection Type Void Urine Color Yellow Urine Clarity Clear Urine pH 6.0 (<5.0-8.0) Urine Specific [place] 1.020 (1.000-1.030) Urine Protein Negative mg/dL (NEG-TRACE) Urine Glucose (UA) Negative mg/dL (NEG) Urine Ketones (Stick) Negative mg/dL (NEG) Urine Blood Trace (NEG) Urine Nitrite Negative (NEG) Urine Bilirubin Negative (NEG) Urine Urobilinogen Dipstick 1.0 mg/dL (0.2 mg/dL) Urine Leukocyte Esterase Moderate (NEG) Urine RBC 0 /HPF (0-2) Urine WBC >40 /HPF (0-4) Urine Squamous Epithelial Cells Mod /LPF Urine Bacteria Moderate /HPF (0-FEW) Urine Mucus Marked /LPF Bedside Urine HCG, Qualitative Hcg negative (Negative) White Blood Count 10.1 x10^3/uL (4.0-11.0) Red Blood Count 4.64 x10^6/uL (3.50-5.40) Hemoglobin 13.8 g/dL (12.0-15.5) Hematocrit 39.1 % (36.0-47.0) Mean Corpuscular Volume 84 fL (79-100) Mean Corpuscular Hemoglobin 30 pg (25-35) Mean Corpuscular Hemoglobin Concent 35 g/dL (31-37) Red Cell Distribution Width 13.4 % (11.5-14.5) Platelet Count 388 x10^3/uL (140-400) Neutrophils (%) (Auto) 71 % (31-73) Lymphocytes (%) (Auto) 23 % (24-48) Monocytes (%) (Auto) 4 % (0-9) Eosinophils (%) (Auto) 1 % (0-3) Basophils (%) (Auto) 0 % (0-3) Neutrophils # (Auto) 7.2 x10^3/uL (1.8-7.7) Lymphocytes # (Auto) 2.4 x10^3/uL (1.0-4.8) Monocytes # (Auto) 0.4 x10^3/uL (0.0-1.1) Eosinophils # (Auto) 0.1 x10^3/uL (0.0-0.7) Basophils # (Auto) 0.0 x10^3/uL (0.0-0.2) Sodium Level 138 mmol/L (136-145) Potassium Level 3.3 mmol/L (3.5-5.1) Chloride Level 101 mmol/L (98-107) Carbon Dioxide Level 28 mmol/L (21-32) Anion Gap 9 (6-14) Blood Urea Nitrogen 9 mg/dL (7-20) Creatinine 0.8 mg/dL (0.6-1.0) Estimated GFR (Cockcroft-Gault) 80.3 BUN/Creatinine Ratio 11 (6-20) Glucose Level 124 mg/dL (70-99) Calcium Level 9.2 mg/dL (8.5-10.1) Magnesium Level 1.9 mg/dL (1.8-2.4) Total Bilirubin 1.0 mg/dL (0.2-1.0) Aspartate Amino Transf (AST/SGOT) 158 U/L (15-37) Alanine Aminotransferase (ALT/SGPT) 100 U/L (14-59) Alkaline Phosphatase 165 U/L (46-116) Total Protein 7.9 g/dL (6.4-8.2) Albumin 3.9 g/dL (3.4-5.0) Albumin/Globulin Ratio 1.0 (1.0-1.7) Lipase 141 U/L (73-393) SARS-CoV-2 Antigen (Rapid) Negative (NEGATIVE) Images Images As in the history of present illness Assessment/Plan Assessment/Plan Chronic cholecystitis plan laparoscopic cholecystectomy KJ SANTIAGO MD Jun 19, 2021 10:24
[2021-06-19] MEDS ORDERED: PHENYLEPHRINE in 0.9% NACL PF 1 MG/10 ML SYRINGE. IV ONE (10:30)
[2021-06-19] MEDS ORDERED: GLYCOPYRROLATE 1 MG/5 ML VIAL. ONE (10:45)
[2021-06-19] MEDS ORDERED: SEVOFLURANE 61 TO 120 MINUTES. IH ONE (10:47)
[2021-06-19] MEDS ORDERED: NEOSTIGMINE METHYLSULFATE 5 MG/5 ML SYRINGE. ONE (10:47)
[2021-06-19] MEDS ORDERED: KETOROLAC 30 MG/ML VIAL. ONE (10:56)
--- NOTE | 2021-06-19 11:06 | PDOC4 ---
Operative Note Operative Note Date: June 19, 2021 1103 Preoperative diagnosis: Chronic cholecystitis cholelithiasis Postoperative diagnosis: Same Procedure: Laparoscopic cholecystectomy with fluorescein cholangiogram Surgeon: John Specimen: Gallbladder Dictation: Patient is 40-year-old female was made to the hospital right upper quadrant abdominal pain ultrasound showing gallstones. Procedure of laparoscopic cholecystectomy was explained to the patient detail risk benefits were also discussed including bleeding infection injury to intra-abdominal contents possible necessitating further open operations alternatives to this procedure also discussed with the patient who seemed to understand and gave a verbal written consent to have the procedure performed. Patient was taken to the operating room placed in the supine position general anesthesia was initiated once patient was sleeping intubated her abdomen was prepped draped usual sterile fashion using ChloraPrep. Area just below the umbilicus was injected with quarter percent Marcaine with epinephrine incision was made 11 blade scalpel and varies needle was placed within the abdomen pneumoperitoneum was achieved once this complete the millimeter port was placed in a 5 mm camera was placed within the abdomen which was inspected no other abnormalities were noted. A 5 mm port was placed in the epigastrium a 5 mm port was placed in the right midabdomen and a 5 mm port was placed in the right lateral abdomen all under direct visualization. The dome of the gallbladder is grasped retracted cephalad the infundibulum of the gallbladder is grasped retracted laterally exposing the triangle adherent tissues of the triangle were taken down with blunt dissection exposing the cystic duct and cystic artery at this time fluorescein dye was visualized which showed good dye within the cystic duct and common bile duct without any evidence of obstruction. The cystic duct was doubly clipped and transected as well as the cystic artery the gallbladder is taken off the liver with hook electrocautery placed in Endo Catch bag removed and the umbilicus right upper quadrant was irrigated and suctioned dry hemostasis deemed to be appropriate the pneumoperitoneum was reduced all ports were removed the fascial defect at the umbilicus was closed with [id number] 0 Vicryl suture and the skin was reapproximated all port sites for subcuticular Monocryl Mastisol Steri-Strips and island dressings were applied. Patient was awakened and extubated in the operating room taken to recovery in stable condition all sponge instrument needle counts listed as correct estimated blood loss 20 mL. KJ SANTIAGO MD Jun 19, 2021 11:05
[2021-06-19] MEDS ORDERED: oxyCODONE/APAP 5/325 1 TAB TABLET PO PRN (11:15)
[2021-06-19] MEDS ORDERED: fentaNYL PF VIAL 100 MCG/2 ML VIAL ONE (12:26)
[2021-06-19] MEDS: oxyCODONE/APAP 5/325 1 TAB TABLET PO PRN ×2 (14:19→20:34)
[2021-06-19 15:20] VITALS: BP 135/63
[2021-06-19] MEDS ORDERED: ONDANSETRON PF 4 MG/2 ML VIAL. IVP PRN (16:45)
[2021-06-19] MEDS ORDERED: traMADol 50 MG TABLET PO PRN (17:15)
[2021-06-19] MEDS ORDERED: POLYETHYLENE GLYCOL 3350 17 GM PACKET. PO PRN (17:15)
[2021-06-19 20:54] VITALS: BP 100/65
[2021-06-19] MEDS ORDERED: PSYLLIUM HUSK (SUGAR FREE) 1 PKT PACKET PO SCH (21:00)
[2021-06-19 22:45] VITALS: BP 108/67
[2021-06-20 02:41] VITALS: BP 96/56
[2021-06-20] MEDS ORDERED: INDOCYANINE GREEN 2.5 MG in TOTAL VOLUME SYRINGE 1 ML IVP ONE (06:00)
[2021-06-20 07:00] VITALS: BP 112/65
[2021-06-20 08:28] LABS: BASO % 1 % (0-3); EOS # 0.1 x10^3/uL (0.0-0.7); EOS % 2 % (0-3); HEMATOCRIT 35.3 % (36.0-47.0); HEMOGLOBIN 12.2 g/dL (12.0-15.5); LYMPH # 2.9 x10^3/uL (1.0-4.8); LYMPH % 40 % (24-48); MEAN CORPUSCULAR HEMOGLOBIN 30 pg (25-35); MEAN CORPUSCULAR HGB CONC 35 g/dL (31-37); MEAN CORPUSCULAR VOLUME 86 fL (79-100); MONO # 0.4 x10^3/uL (0.0-1.1); MONO % 5 % (0-9); NEUT # 3.8 x10^3/uL (1.8-7.7); NEUT % 53 % (31-73); PLATELET COUNT 337 x10^3/uL (140-400); RED BLOOD COUNT 4.08 x10^6/uL (3.50-5.40); RED CELL DISTRIBUTION WIDTH 13.5 % (11.5-14.5); WHITE BLOOD COUNT 7.2 x10^3/uL (4.0-11.0)
[2021-06-20] MEDS: oxyCODONE/APAP 5/325 1 TAB TABLET PO PRN ×2 (08:35→13:51)
--- NOTE | 2021-06-20 08:39 | PDOC ---
SURGICAL PROGRESS NOTE DATE: 06/20/21 TIME: 08:37 Subjective doing better pain managed Vital Signs Vital Signs Date Time Temp Pulse Resp B/P (MAP) Pulse Ox O2 Delivery O2 Flow Rate FiO2 06/20/21 08:35 Room Air 06/20/21 07:00 98.1 65 16 112/65 (81) 97 98.1 06/19/21 11:43 10 I&O Intake and Output 06/20/21 07:00 Intake Total 1600 ml Output Total 15 ml Balance 1585 ml Intake Oral 0 ml IV Total 1600 ml Output Estimated Blood Loss 15 ml # Voids 7 General: Alert, Oriented X3, Cooperative Abdomen: Soft, Other (lap dressings dry ) Labs Laboratory Tests Test 06/18/21 20:20 06/18/21 20:22 06/18/21 20:55 06/19/21 02:40 Urine Collection Type Void Urine Color Yellow Urine Clarity Clear Urine pH 6.0 (<5.0-8.0) Urine Specific [place] 1.020 (1.000-1.030) Urine Protein Negative mg/dL (NEG-TRACE) Urine Glucose (UA) Negative mg/dL (NEG) Urine Ketones (Stick) Negative mg/dL (NEG) Urine Blood Trace (NEG) Urine Nitrite Negative (NEG) Urine Bilirubin Negative (NEG) Urine Urobilinogen Dipstick 1.0 mg/dL (0.2 mg/dL) Urine Leukocyte Esterase Moderate (NEG) Urine RBC 0 /HPF (0-2) Urine WBC >40 /HPF (0-4) Urine Squamous Epithelial Cells Mod /LPF Urine Bacteria Moderate /HPF (0-FEW) Urine Mucus Marked /LPF Bedside Urine HCG, Qualitative Hcg negative (Negative) White Blood Count 10.1 x10^3/uL (4.0-11.0) Red Blood Count 4.64 x10^6/uL (3.50-5.40) Hemoglobin 13.8 g/dL (12.0-15.5) Hematocrit 39.1 % (36.0-47.0) Mean Corpuscular Volume 84 fL (79-100) Mean Corpuscular Hemoglobin 30 pg (25-35) Mean Corpuscular Hemoglobin Concent 35 g/dL (31-37) Red Cell Distribution Width 13.4 % (11.5-14.5) Platelet Count 388 x10^3/uL (140-400) Neutrophils (%) (Auto) 71 % (31-73) Lymphocytes (%) (Auto) 23 % (24-48) Monocytes (%) (Auto) 4 % (0-9) Eosinophils (%) (Auto) 1 % (0-3) Basophils (%) (Auto) 0 % (0-3) Neutrophils # (Auto) 7.2 x10^3/uL (1.8-7.7) Lymphocytes # (Auto) 2.4 x10^3/uL (1.0-4.8) Monocytes # (Auto) 0.4 x10^3/uL (0.0-1.1) Eosinophils # (Auto) 0.1 x10^3/uL (0.0-0.7) Basophils # (Auto) 0.0 x10^3/uL (0.0-0.2) Sodium Level 138 mmol/L (136-145) Potassium Level 3.3 mmol/L (3.5-5.1) Chloride Level 101 mmol/L (98-107) Carbon Dioxide Level 28 mmol/L (21-32) Anion Gap 9 (6-14) Blood Urea Nitrogen 9 mg/dL (7-20) Creatinine 0.8 mg/dL (0.6-1.0) Estimated GFR (Cockcroft-Gault) 80.3 BUN/Creatinine Ratio 11 (6-20) Glucose Level 124 mg/dL (70-99) Calcium Level 9.2 mg/dL (8.5-10.1) Magnesium Level 1.9 mg/dL (1.8-2.4) Total Bilirubin 1.0 mg/dL (0.2-1.0) Aspartate Amino Transf (AST/SGOT) 158 U/L (15-37) Alanine Aminotransferase (ALT/SGPT) 100 U/L (14-59) Alkaline Phosphatase 165 U/L (46-116) Total Protein 7.9 g/dL (6.4-8.2) Albumin 3.9 g/dL (3.4-5.0) Albumin/Globulin Ratio 1.0 (1.0-1.7) Lipase 141 U/L (73-393) SARS-CoV-2 RNA (BEV) Negative (Negative) SARS-CoV-2 Antigen (Rapid) Negative (NEGATIVE) Test 06/20/21 07:45 White Blood Count 7.2 x10^3/uL (4.0-11.0) Red Blood Count 4.08 x10^6/uL (3.50-5.40) Hemoglobin 12.2 g/dL (12.0-15.5) Hematocrit 35.3 % (36.0-47.0) Mean Corpuscular Volume 86 fL (79-100) Mean Corpuscular Hemoglobin 30 pg (25-35) Mean Corpuscular Hemoglobin Concent 35 g/dL (31-37) Red Cell Distribution Width 13.5 % (11.5-14.5) Platelet Count 337 x10^3/uL (140-400) Neutrophils (%) (Auto) 53 % (31-73) Lymphocytes (%) (Auto) 40 % (24-48) Monocytes (%) (Auto) 5 % (0-9) Eosinophils (%) (Auto) 2 % (0-3) Basophils (%) (Auto) 1 % (0-3) Neutrophils # (Auto) 3.8 x10^3/uL (1.8-7.7) Lymphocytes # (Auto) 2.9 x10^3/uL (1.0-4.8) Monocytes # (Auto) 0.4 x10^3/uL (0.0-1.1) Eosinophils # (Auto) 0.1 x10^3/uL (0.0-0.7) Basophils # (Auto) 0.0 x10^3/uL (0.0-0.2) Laboratory Tests Test 06/20/21 07:45 White Blood Count 7.2 x10^3/uL (4.0-11.0) Red Blood Count 4.08 x10^6/uL (3.50-5.40) Hemoglobin 12.2 g/dL (12.0-15.5) Hematocrit 35.3 % (36.0-47.0) Mean Corpuscular Volume 86 fL (79-100) Mean Corpuscular Hemoglobin 30 pg (25-35) Mean Corpuscular Hemoglobin Concent 35 g/dL (31-37) Red Cell Distribution Width 13.5 % (11.5-14.5) Platelet Count 337 x10^3/uL (140-400) Neutrophils (%) (Auto) 53 % (31-73) Lymphocytes (%) (Auto) 40 % (24-48) Monocytes (%) (Auto) 5 % (0-9) Eosinophils (%) (Auto) 2 % (0-3) Basophils (%) (Auto) 1 % (0-3) Neutrophils # (Auto) 3.8 x10^3/uL (1.8-7.7) Lymphocytes # (Auto) 2.9 x10^3/uL (1.0-4.8) Monocytes # (Auto) 0.4 x10^3/uL (0.0-1.1) Eosinophils # (Auto) 0.1 x10^3/uL (0.0-0.7) Basophils # (Auto) 0.0 x10^3/uL (0.0-0.2) Problem List Problems Medical Problems: (1) Biliary colic symptom Status: Acute (2) Elevated LFTs Status: Acute (3) UTI (urinary tract infection) Status: Acute Assessment/Plan s/p joann ok to co home FU 2 weeks Justicifation of Admission Dx: Justifications for Admission: Justification of Admission Dx: Yes Comments: biliary colic TANISHA MALIN [employer] MANAGER Jun 20, 2021 08:38
[2021-06-20] MEDS ORDERED: OXYC1TAB15 PO (08:40)
[2021-06-20 08:48] LABS: ALBUMIN/GLOBULIN RATIO 0.9 (1.0-1.7); CALCIUM 8.5 mg/dL (8.5-10.1); CREATININE 0.6 mg/dL (0.6-1.0); GFR 111.9; POTASSIUM 3.3 mmol/L (3.5-5.1); TOTAL BILIRUBIN 0.4 mg/dL (0.2-1.0); TOTAL PROTEIN 6.5 g/dL (6.4-8.2)
[2021-06-20 11:00] VITALS: BP 110/78
--- NOTE | 2021-06-20 12:15 | PDOC ---
[employer] PROGRESS NOTE Date of Service DOS: DATE: 06/20/21 TIME: 12:03 Chief Complaint Chief Complaint A/P: Intractable abdominal pain - likely related to biliary colic with chronic recurrent cholecystitis. Given her symptoms recurring over the past 4 months and 2 hospitalizations now s/p laparoscopic cholecystectomy while inpatient. Cholelithiasis - symptomatic. recommend lap joann consideration Overweight - counseled on lifestyle modification Transaminitis - likely due to symptomatic cholelithiasis. COVID 19 negative. Will monitor trend, if still elevated will check hepatitis panel Hypokalemia - due to NPO, will replace when taking PO. LR will have replacement of K in fluids FEN - general diet PPX - Ambulatory low risk FULL CODE Dispo - inpatient History of Present Illness History of Present Illness Ms Chavez is a 40 year old female who presented to the ED for evaluation of sudden onset right upper quadrant abdominal pain and epigastric pain since 3 PM 06/18/2021 while she was at work. Patient had this problem off and on for about 4 months. Patient says she was seen at [facility] last month 06/01/2021 for the same problem, diagnosed with gallstones and UTI. Patient has not seen a general surgeon yet. Patient denies any cough or fever. Patient denies any chest pain or any trouble breathing, she says she is not . Nose pain is tenderness to the right upper quadrant and radiates to her right flank and back as well as her epigastrium. Labs WBC 10.1, Hb 13.8, platelets 388, NA 138, K3.3, BUN 9, CR 0.8, glucose 124, calcium 9.2, mag 1.9, bilirubin 1, AST 158, ALT 100, alkaline phosphatase 165, albumin 3.9, urinalysis hCG negative with moderate leuk esterase trace blood. Rapid COVID-19 negative. Abdominal ultrasound with multiple gallstones no sonographic evidence of acute cholecystitis, hepatic steatosis. Admitted for further care and pain control. POD #1 lap joann. Tolerating PO well. Passing flatus, pain controlled on oxycodone. Wishes for d/c home. No SOB or CP Vitals/I&O Vitals/I&O: Vital Signs Date Time Temp Pulse Resp B/P (MAP) Pulse Ox O2 Delivery O2 Flow Rate FiO2 06/20/21 11:00 97.8 79 16 110/78 (89) 96 Room Air 97.8 06/19/21 11:43 10 I & O 06/19/21 06/19/21 06/20/21 15:00 23:00 07:00 Intake Total 1600 ml Output Total 15 ml Balance 1585 ml Physical Exam General: Alert, Oriented X3, Cooperative Heart: Regular rate, No murmurs Abdomen: Soft, Other (lap dressings dry ) Extremities: No edema Skin: No significant lesion Labs Labs: Laboratory Tests Test 06/20/21 07:45 06/20/21 08:00 White Blood Count 7.2 x10^3/uL (4.0-11.0) Red Blood Count 4.08 x10^6/uL (3.50-5.40) Hemoglobin 12.2 g/dL (12.0-15.5) Hematocrit 35.3 % (36.0-47.0) Mean Corpuscular Volume 86 fL (79-100) Mean Corpuscular Hemoglobin 30 pg (25-35) Mean Corpuscular Hemoglobin Concent 35 g/dL (31-37) Red Cell Distribution Width 13.5 % (11.5-14.5) Platelet Count 337 x10^3/uL (140-400) Neutrophils (%) (Auto) 53 % (31-73) Lymphocytes (%) (Auto) 40 % (24-48) Monocytes (%) (Auto) 5 % (0-9) Eosinophils (%) (Auto) 2 % (0-3) Basophils (%) (Auto) 1 % (0-3) Neutrophils # (Auto) 3.8 x10^3/uL (1.8-7.7) Lymphocytes # (Auto) 2.9 x10^3/uL (1.0-4.8) Monocytes # (Auto) 0.4 x10^3/uL (0.0-1.1) Eosinophils # (Auto) 0.1 x10^3/uL (0.0-0.7) Basophils # (Auto) 0.0 x10^3/uL (0.0-0.2) Sodium Level 142 mmol/L (136-145) Potassium Level 3.3 mmol/L (3.5-5.1) Chloride Level 108 mmol/L (98-107) Carbon Dioxide Level 27 mmol/L (21-32) Anion Gap 7 (6-14) Blood Urea Nitrogen 5 mg/dL (7-20) Creatinine 0.6 mg/dL (0.6-1.0) Estimated GFR (Cockcroft-Gault) 111.9 BUN/Creatinine Ratio 8 (6-20) Glucose Level 85 mg/dL (70-99) Calcium Level 8.5 mg/dL (8.5-10.1) Total Bilirubin 0.4 mg/dL (0.2-1.0) Aspartate Amino Transf (AST/SGOT) 61 U/L (15-37) Alanine Aminotransferase (ALT/SGPT) 124 U/L (14-59) Alkaline Phosphatase 153 U/L (46-116) Total Protein 6.5 g/dL (6.4-8.2) Albumin 3.0 g/dL (3.4-5.0) Albumin/Globulin Ratio 0.9 (1.0-1.7) Assessment and Plan Assessmemt and Plan Problems Medical Problems: (1) Biliary colic symptom Status: Acute (2) Elevated LFTs Status: Acute (3) UTI (urinary tract infection) Status: Acute Comment Review of Relevant I have reviewed the following items beena (where applicable) has been applied. Medications: Current Medications Medications (Trade) Dose Ordered Sig/Marcelo Route PRN Reason Start Time Stop Time Status Last Admin Dose Admin Psyllium Hydrophilic Mucilloid (Metamucil Fiber Packet) 1 pkt QHS PO 06/19/21 21:00 06/19/21 20:33 Tramadol HCl (Ultram) 50 mg PRN Q6HRS PRN PO PAIN 06/19/21 17:15 06/20/21 02:59 Justifications for Admission Other Justification SABRINA HAGAN MD Jun 20, 2021 12:15
[2021-06-20] MEDS ORDERED: POTASSIUM BICARB 20 MEQ EFFERVESCENT TABLET. PO ONE (12:30)
--- NOTE | 2021-06-20 13:14 | PDOC3 ---
Discharge Summary Visit Information Date of Admission: Jun 18, 2021 Date of Discharge: Jun 20, 2021 Admitting Diagnosis: Symptomatic cholelithiasis Final Diagnosis Problems Medical Problems: (1) Biliary colic symptom Status: Acute (2) Elevated LFTs Status: Acute (3) UTI (urinary tract infection) Status: Acute Brief Hospital Course Allergies Allergies Coded Allergies Type Severity Reaction Last Updated Verified progesterone Adverse Reaction Intermediate Itching 10/01/20 Yes Vital Signs Vital Signs Date Time Temp Pulse Resp B/P (MAP) Pulse Ox O2 Delivery O2 Flow Rate FiO2 06/20/21 11:00 97.8 79 16 110/78 (89) 96 Room Air 97.8 06/19/21 11:43 10 Lab Results Laboratory Tests Test 06/18/21 20:20 06/18/21 20:22 06/18/21 20:55 06/19/21 02:40 Urine Collection Type Void Urine Color Yellow Urine Clarity Clear Urine pH 6.0 (<5.0-8.0) Urine Specific [place] 1.020 (1.000-1.030) Urine Protein Negative mg/dL (NEG-TRACE) Urine Glucose (UA) Negative mg/dL (NEG) Urine Ketones (Stick) Negative mg/dL (NEG) Urine Blood Trace (NEG) Urine Nitrite Negative (NEG) Urine Bilirubin Negative (NEG) Urine Urobilinogen Dipstick 1.0 mg/dL (0.2 mg/dL) Urine Leukocyte Esterase Moderate (NEG) Urine RBC 0 /HPF (0-2) Urine WBC >40 /HPF (0-4) Urine Squamous Epithelial Cells Mod /LPF Urine Bacteria Moderate /HPF (0-FEW) Urine Mucus Marked /LPF Bedside Urine HCG, Qualitative Hcg negative (Negative) White Blood Count 10.1 x10^3/uL (4.0-11.0) Red Blood Count 4.64 x10^6/uL (3.50-5.40) Hemoglobin 13.8 g/dL (12.0-15.5) Hematocrit 39.1 % (36.0-47.0) Mean Corpuscular Volume 84 fL (79-100) Mean Corpuscular Hemoglobin 30 pg (25-35) Mean Corpuscular Hemoglobin Concent 35 g/dL (31-37) Red Cell Distribution Width 13.4 % (11.5-14.5) Platelet Count 388 x10^3/uL (140-400) Neutrophils (%) (Auto) 71 % (31-73) Lymphocytes (%) (Auto) 23 % (24-48) Monocytes (%) (Auto) 4 % (0-9) Eosinophils (%) (Auto) 1 % (0-3) Basophils (%) (Auto) 0 % (0-3) Neutrophils # (Auto) 7.2 x10^3/uL (1.8-7.7) Lymphocytes # (Auto) 2.4 x10^3/uL (1.0-4.8) Monocytes # (Auto) 0.4 x10^3/uL (0.0-1.1) Eosinophils # (Auto) 0.1 x10^3/uL (0.0-0.7) Basophils # (Auto) 0.0 x10^3/uL (0.0-0.2) Sodium Level 138 mmol/L (136-145) Potassium Level 3.3 mmol/L (3.5-5.1) Chloride Level 101 mmol/L (98-107) Carbon Dioxide Level 28 mmol/L (21-32) Anion Gap 9 (6-14) Blood Urea Nitrogen 9 mg/dL (7-20) Creatinine 0.8 mg/dL (0.6-1.0) Estimated GFR (Cockcroft-Gault) 80.3 BUN/Creatinine Ratio 11 (6-20) Glucose Level 124 mg/dL (70-99) Calcium Level 9.2 mg/dL (8.5-10.1) Magnesium Level 1.9 mg/dL (1.8-2.4) Total Bilirubin 1.0 mg/dL (0.2-1.0) Aspartate Amino Transf (AST/SGOT) 158 U/L (15-37) Alanine Aminotransferase (ALT/SGPT) 100 U/L (14-59) Alkaline Phosphatase 165 U/L (46-116) Total Protein 7.9 g/dL (6.4-8.2) Albumin 3.9 g/dL (3.4-5.0) Albumin/Globulin Ratio 1.0 (1.0-1.7) Lipase 141 U/L (73-393) SARS-CoV-2 RNA (BEV) Negative (Negative) SARS-CoV-2 Antigen (Rapid) Negative (NEGATIVE) Test 06/20/21 07:45 06/20/21 08:00 White Blood Count 7.2 x10^3/uL (4.0-11.0) Red Blood Count 4.08 x10^6/uL (3.50-5.40) Hemoglobin 12.2 g/dL (12.0-15.5) Hematocrit 35.3 % (36.0-47.0) Mean Corpuscular Volume 86 fL (79-100) Mean Corpuscular Hemoglobin 30 pg (25-35) Mean Corpuscular Hemoglobin Concent 35 g/dL (31-37) Red Cell Distribution Width 13.5 % (11.5-14.5) Platelet Count 337 x10^3/uL (140-400) Neutrophils (%) (Auto) 53 % (31-73) Lymphocytes (%) (Auto) 40 % (24-48) Monocytes (%) (Auto) 5 % (0-9) Eosinophils (%) (Auto) 2 % (0-3) Basophils (%) (Auto) 1 % (0-3) Neutrophils # (Auto) 3.8 x10^3/uL (1.8-7.7) Lymphocytes # (Auto) 2.9 x10^3/uL (1.0-4.8) Monocytes # (Auto) 0.4 x10^3/uL (0.0-1.1) Eosinophils # (Auto) 0.1 x10^3/uL (0.0-0.7) Basophils # (Auto) 0.0 x10^3/uL (0.0-0.2) Sodium Level 142 mmol/L (136-145) Potassium Level 3.3 mmol/L (3.5-5.1) Chloride Level 108 mmol/L (98-107) Carbon Dioxide Level 27 mmol/L (21-32) Anion Gap 7 (6-14) Blood Urea Nitrogen 5 mg/dL (7-20) Creatinine 0.6 mg/dL (0.6-1.0) Estimated GFR (Cockcroft-Gault) 111.9 BUN/Creatinine Ratio 8 (6-20) Glucose Level 85 mg/dL (70-99) Calcium Level 8.5 mg/dL (8.5-10.1) Total Bilirubin 0.4 mg/dL (0.2-1.0) Aspartate Amino Transf (AST/SGOT) 61 U/L (15-37) Alanine Aminotransferase (ALT/SGPT) 124 U/L (14-59) Alkaline Phosphatase 153 U/L (46-116) Total Protein 6.5 g/dL (6.4-8.2) Albumin 3.0 g/dL (3.4-5.0) Albumin/Globulin Ratio 0.9 (1.0-1.7) Laboratory Tests Test 06/20/21 07:45 06/20/21 08:00 White Blood Count 7.2 x10^3/uL (4.0-11.0) Red Blood Count 4.08 x10^6/uL (3.50-5.40) Hemoglobin 12.2 g/dL (12.0-15.5) Hematocrit 35.3 % (36.0-47.0) Mean Corpuscular Volume 86 fL (79-100) Mean Corpuscular Hemoglobin 30 pg (25-35) Mean Corpuscular Hemoglobin Concent 35 g/dL (31-37) Red Cell Distribution Width 13.5 % (11.5-14.5) Platelet Count 337 x10^3/uL (140-400) Neutrophils (%) (Auto) 53 % (31-73) Lymphocytes (%) (Auto) 40 % (24-48) Monocytes (%) (Auto) 5 % (0-9) Eosinophils (%) (Auto) 2 % (0-3) Basophils (%) (Auto) 1 % (0-3) Neutrophils # (Auto) 3.8 x10^3/uL (1.8-7.7) Lymphocytes # (Auto) 2.9 x10^3/uL (1.0-4.8) Monocytes # (Auto) 0.4 x10^3/uL (0.0-1.1) Eosinophils # (Auto) 0.1 x10^3/uL (0.0-0.7) Basophils # (Auto) 0.0 x10^3/uL (0.0-0.2) Sodium Level 142 mmol/L (136-145) Potassium Level 3.3 mmol/L (3.5-5.1) Chloride Level 108 mmol/L (98-107) Carbon Dioxide Level 27 mmol/L (21-32) Anion Gap 7 (6-14) Blood Urea Nitrogen 5 mg/dL (7-20) Creatinine 0.6 mg/dL (0.6-1.0) Estimated GFR (Cockcroft-Gault) 111.9 BUN/Creatinine Ratio 8 (6-20) Glucose Level 85 mg/dL (70-99) Calcium Level 8.5 mg/dL (8.5-10.1) Total Bilirubin 0.4 mg/dL (0.2-1.0) Aspartate Amino Transf (AST/SGOT) 61 U/L (15-37) Alanine Aminotransferase (ALT/SGPT) 124 U/L (14-59) Alkaline Phosphatase 153 U/L (46-116) Total Protein 6.5 g/dL (6.4-8.2) Albumin 3.0 g/dL (3.4-5.0) Albumin/Globulin Ratio 0.9 (1.0-1.7) Brief Hospital Course Ms Chavez is a 40 year old female who presented to the ED for evaluation of sudden onset right upper quadrant abdominal pain and epigastric pain since 3 PM 06/18/2021 while she was at work. Patient had this problem off and on for about 4 months. Patient says she was seen at [facility] last month 06/01/2021 for the same problem, diagnosed with gallstones and UTI. Patient has not seen a general surgeon yet. Patient denies any cough or fever. Patient denies any chest pain or any trouble breathing, she says she is not . Nose pain is tenderness to the right upper quadrant and radiates to her right flank and back as well as her epigastrium. Labs WBC 10.1, Hb 13.8, platelets 388, NA 138, K3.3, BUN 9, CR 0.8, glucose 124, calcium 9.2, mag 1.9, bilirubin 1, AST 158, ALT 100, alkaline phosphatase 165, albumin 3.9, urinalysis hCG negative with moderate leuk esterase trace blood. Rapid COVID-19 negative. Abdominal ultrasound with multiple gallstones no sonographic evidence of acute cholecystitis, hepatic steatosis. Admitted for further care and pain control. Consult: General surgery 06/20: POD #1 lap joann. Tolerating PO well. Passing flatus, pain controlled on oxycodone. Wishes for d/c home. No SOB or CP Problem list: Intractable abdominal pain - likely related to biliary colic with chronic recurrent cholecystitis. Given her symptoms recurring over the past 4 months and 2 hospitalizations now s/p laparoscopic cholecystectomy while inpatient. Cholelithiasis - symptomatic. recommend lap joann consideration Overweight - counseled on lifestyle modification Transaminitis - likely due to symptomatic cholelithiasis. COVID 19 negative. Will monitor trend, if still elevated will check hepatitis panel Hypokalemia - due to NPO, replaced Greater than 30 minutes spent on d/c home Discharge Information Condition at Discharge: Improved Follow Up: Weeks (1) Disposition/Orders: D/C to Home Scheduled Ferrous Sulfate (Ferrous Sulfate) 325 Mg Tablet, 1 TAB PO BID for anemia, #30 Ref 2 Prescribed by: TOMER BECKHAM MD on 10/03/20 0941 Sumatriptan Succinate (Imitrex) 50 Mg Tablet, 1 TAB PO UD, #9 Ref 1 Prescribed by: Tamara Key APRN on 02/15/171 Scheduled PRN Docusate Sodium (Colace) 100 Mg Capsule, 100 MG PO PRN BID PRN for CONSTIPATION, #30 Ref 2 Prescribed by: TOMER BECKHAM MD on 10/03/20 0941 Ibuprofen (Ibuprofen) 800 Mg Tablet, 800 MG PO PRN Q8HRS PRN for INFLAMMATION, #30 Ref 2 Prescribed by: TOMER BECKHAM MD on 10/03/20 0941 Oxycodone/Apap 5-325 (Percocet 5-325 Mg Tablet ) 1 Each Tablet, 1 TAB PO PRN Q6HRS PRN for MODERATE PAIN, #20 Ref 0 Prescribed by: Rajni Clark on 06/20/21 0840 Justicifation of Admission Dx: Justifications for Admission: Justification of Admission Dx: Yes SABRINA HAGAN MD Jun 20, 2021 13:14
--- NOTE | 2021-06-23 17:06 | PATHOLOGY ---
[facility] Accession Number: [id number] . 01 Material submitted: . gallbladder - GALLBLADDER AND CONTENTS . 01 Clinical history: . BILIARY CHOLIC LAP RADHA . 02 Diagnosis: Gallbladder, laparoscopic cholecystectomy: - Cholelithiasis. - Cholesterolosis. - Chronic cholecystitis. ([facility]; 06/23/2021) [facility] 06/23/2021 0917 Local . 02 Comment: There is no evidence of malignancy. ([facility]; 06/23/2021) . 02 Electronically signed: . Carlos Hope MD, Pathologist NPI- [id number] . 01 Gross description: . Fixative: Formalin Labeled: Hermelindahortencia Radha, gallbladder and contents Specimen received: Gallbladder with small defect. Dimensions: 7.5 x 3.0 x 2.0 cm Serosa: Ho and smooth with a 0.3 x 0.2 cm defect. Lymph node: Not present Mucosa: Bile-stained and velvety with diffuse yellow stippling. Average wall thickness: 0.2 cm Calculi: Multiple yellow, bosselated, friable calculi measuring 4.5 x 4.0 x 0.5 cm in aggregate. Abnormalities: None identified A1- Farmworkers body, fundus, and the cystic duct margin. ([facility]; 06/19/2021) MFE/MFE 06/23/2021 0924 Local . 02 Pathologist provided ICD-10: K80.10, K82.4 . 02 CPT . 958244 Specimen Comment: A courtesy copy of this report has been sent to [phone] Specimen Comment: [phone], Specimen Comment: Report sent to , DR PULIDO / DR ZELAYA Performed at: 01 [facility] [address], [place], [place] [id number] MD Keron Humphreys MD Phone: [phone] Performed at: 02 [facility] [address] [place], [place] [id number] MD Carlos Hope MD Phone: [phone]
== END 2021-06-20 14:55 | disposition home or self-care (01) | DRG 418 ==
LOC: ER 20:09 → ED HOLD 23:30 → 4 NORTH 06-19 00:39
PROVIDERS: ADMIT Internal Medicine; ATTEND Internal Medicine
PROC: BF101ZZ Fluoroscopy of Bile Ducts using Low Osmolar Contrast (ICD-10-PCS; 2021-06-19)
PROC: 0FT44ZZ Resection of Gallbladder, Percutaneous Endoscopic Approach (ICD-10-PCS; principal; 2021-06-19 10:30)
DX: K80.10 Calculus of gallbladder with chronic cholecystitis without obstruction (principal); N39.0 Urinary tract infection, site not specified; E66.3 Overweight; E87.6 Hypokalemia; K76.0 Fatty (change of) liver, not elsewhere classified; Z20.822 Contact with and (suspected) exposure to COVID-19; Z83.3 Family history of diabetes mellitus; Z79.899 Other long term (current) drug therapy; Z88.8 Allergy status to other drugs, medicaments and biological substances; Z68.27 Body mass index [BMI] 27.0-27.9, adult
CPT/HCPCS: 36415; 76705; 80053; 81001; 81025; 83690; 83735; 85025; 87086; 87426; 88304; 96374; 96375; A4657; A4930; A6219; J0690; J0696; J1885; J2250; J2270; J2370; J2704; J2710; J3010; J3490; J7030; J7120; Q9967; U0003; U0005; 99285-25; G0378